=== PATIENT | female | born 1935 | race Caucasian/White ===

== ENCOUNTER → 2020-03-27 | Outpatient (CLI) | payer MEDICARE ==
--- NOTE | 2020-03-27 13:49 | XR ---
EXAMINATION TYPE: XR abdomen complete w decub DATE OF EXAM: 03/27/2020 CLINICAL HISTORY: Left-sided pain. TECHNIQUE: Supine, upright, and left side down lateral decubitus views of the abdomen are obtained. COMPARISON: None. FINDINGS: Gas seen in moderately distended stomach. Scattered gas is seen in non-distended small bow el loops. Gas and fecal material is seen in non-distended colon along the periphery. No pneumoperito neum. Elevated left hemidiaphragm. Multilevel spurring and disc space narrowing in the lumbar spine. Moderate axial joint space loss both hips. Occasional scattered pelvic phleboliths. IMPRESSION: Overall nonspecific but favor nonobstructive bowel gas pattern. Possible gastroparesis, correlate clinically. Consider nuclear medicine evaluation.
== END | disposition home or self-care (01) ==
LOC: RADXRMAIN 12:38
PROVIDERS: ATTEND Family Medicine
DX: R19.4 Change in bowel habit (principal); R10.9 Unspecified abdominal pain
CPT/HCPCS: 74021